=== PATIENT | female | born 1980 ===

== ENCOUNTER 2017-12-25 16:30 | Emergency (ER) | payer MEDICAID, OTHER ==
[2017-12-25 16:43] VITALS: BP 145/99
--- NOTE | 2017-12-25 16:46 | UC ---
Dental HPI - HPI Summary HPI Summary: Pt presents with front upper tooth pain and swelling for the last 3 days. Today the swelling seemed to be the worst - extending to the left upper cheek. She does not have a dentist as she just moved to [place], but is looking for one that takes her insurance. Is able to eat and drink, but does have some pain. Denies fever, chills, drainage. - History of Current Complaint Chief Complaint: UCDentalProblem Stated Complaint: DENTAL COMPLAINT Time Seen by Provider: 12/25/17 16:46 Hx Obtained From: Patient Hx Last Menstrual Period: one week ago Onset/Duration: Gradual Onset Severity: Moderate Pain Intensity: 6 Pain Scale Used: 0-10 Numeric - Allergies/Home Medications Allergies/Adverse Reactions: Allergies Allergy/AdvReac Type Severity Reaction Status Date / Time codeine Allergy Rash And Verified 12/25/17 16:44 Itching paroxetine [From Paxil] Allergy Altered Verified 12/25/17 16:44 Mental Status PMH/Surg Hx/FS Hx/Imm Hx - Additional Past Medical History Additional PMH: None Previously Healthy: Yes - Surgical History Surgical History: None - Family History Known Family History: Positive: None - Social History Lives: With Family Alcohol Use: None Substance Use Type: None Smoking Status (MU): Never Smoked Tobacco - Immunization History Most Recent Influenza Vaccination: 06/07 Review of Systems Constitutional: Negative Skin: Negative ENT: Dental Pain Respiratory: Negative Cardiovascular: Negative Gastrointestinal: Negative Neurovascular: Negative Neurological: Negative Psychological: Negative All Other Systems Reviewed And Are Negative: Yes Physical Exam - Summary Physical Exam Summary: GENERAL: NAD. WDWN. No pain distress. SKIN: No rashes, sores, lesions, or open wounds. HEENT: Head: AT/NC Eyes: EOM intact. Nose: Nasal mucosa pink and moist. Mild TTP overlying the left maxillary sinus Throat: Posterior oropharynx without exudates, erythema, or tonsillar enlargement. Uvula midline. NECK: Supple. Nontender. No lymphadenopathy. CHEST: No accessory muscle use. Breathing comfortably and in no distress. CV: RRR. Without m/r/g. NEURO: Alert. CN II-XII grossly intact. PSYCH: Age appropriate behavior. Triage Information Reviewed: Yes Vital Signs: Initial Vital Signs Temp 97.5 F 12/25/17 16:41 Pulse 78 12/25/17 16:41 Resp 18 12/25/17 16:41 BP 145/99 12/25/17 16:41 Pulse Ox 100 12/25/17 16:41 Dental: Positive: Percussion Tenderness @ - Tooth 8 and 7, Gross Decay/Caries @ - Throughout, Dental Fracture @ - Multiple throughout, Abscess @ - Tooth 8 and 7. Negative: Cellulitis @, Cervical Lymphadenopathy, Bleeding Dental Complaint Course/Dx - Course Course Of Treatment: Dental abscess Tooth 8 and 7 - Augmentin - Differential Dx/Diagnosis Provider Diagnoses: Dental abscess Tooth 8 and 7 Discharge - Sign-Out/Discharge Documenting (check all that apply): Discharge/Admit/Transfer - Discharge Plan Condition: Stable Disposition: HOME Prescriptions: Amoxicillin/Clavulanate TAB* [Augmentin TAB 875*] 875 mg PO BID #20 tab Patient Education Materials: Dental Abscess (ED) Referrals: No Primary Care Phys,NOPCP [Primary Care Provider] - Additional Instructions: If you develop a fever, shortness of breath, chest pain, new or worsening symptoms - please call your PCP or go to the ED. Your blood pressure was high at todays visit. Please see your primary provider within 4 weeks for recheck and re-evaluation. 1) Please schedule a follow up with your dentist as soon as possible for further evaluation - Billing Disposition and Condition Condition: STABLE Disposition: HOME
== END 2017-12-25 16:53 | disposition home or self-care (01) ==
LOC: UCEAST 16:30
DX: K04.7 Periapical abscess without sinus (principal); Z88.5 Allergy status to narcotic agent; Z88.8 Allergy status to other drugs, medicaments and biological substances
CPT/HCPCS: 99202; G0463